=== PATIENT | female | born 1995 | race Caucasian/White ===

== ENCOUNTER 2021-04-11 13:39 | Inpatient (IN) ==
[~2021-04-11 13:39] MED LIST: *HR* Labetalol 20 MG/4 ML SYRINGE IVP ONE; *HR* Labetalol 20 MG/4 ML SYRINGE IVP PRN; Calcium Gluconate 1,000 MG/10 ML VIAL IVP PRN; CeFAZolin 2,000 MG/120 ML BAG IVPB ONE; Famotidine 20 MG/2 ML VIAL IVP ONE; MAGNESIUM SULFATE 6 GM/150 ML IVPB ONE; Magnesium Sulf 20 gm/SW 500mL 20 GM/500 ML IV.SOLN IVC SCH; Metoclopramide 10 MG/2 ML VIAL IVP ONE; Ringers Solution, Lactated 1,000 ML ONE
[2021-04-11 13:44] LABS: Basophils % 0.2 %; Eosinophils % 0.3 %; Hematocrit 39.8 % (35.3-44.9); Hemoglobin 13.4 g/dL (11.5-15.4); Immature Granulocytes % 0.2 % (0-4); Lymphocytes # 1.8 K/mcL (0.6-4.6); Lymphocytes % 19.5 %; Mean Corpuscular HGB Conc 33.7 g/dL (31.6-35.5); Mean Corpuscular Hemoglobin 30.6 pg (28.0-33.3); Mean Corpuscular Volume 90.9 fL (83.0-100.0); Mean Platelet Volume 12.2 fL (9.4-12.4); Monocytes # 0.6 K/mcL (0.0-1.3); Monocytes % 6.6 %; Neutrophils # 6.6 K/mcL (1.6-8.9); Platelet Count 262 K/mcL (140-400); Red Blood Count 4.38 M/mcL (3.82-4.97); Red Cell Distribution Width 13.2 % (11.5-14.5); Segmented Neutrophils % 73.2 %
[2021-04-11] MEDS ORDERED: Betamethasone Acet/SodPhos 30 MG/5 ML VIAL IM SCH (13:45)
[2021-04-11 14:03] LABS: Alanine Aminotransferase 4 Units/L (7-52); Aspartate Amino Transferase 13 Units/L (13-39); BUN/Creatinine Ratio 17 (6-26); Blood Urea Nitrogen 9 mg/dL (6-20); Lactate Dehydrogenase 204 Units/L (140-271); Uric Acid 7.2 mg/dL (2.3-7.6); eGFR For African Americans > 60 (> 60); eGFR For Non-African Americans > 60 (> 60)
[2021-04-11 14:13] LABS: Creatinine,Urine 93 mg/dL; Protein/Creatinine Ratio,Urine 8.98 mg/mg (0.00-0.20)
[2021-04-11] MEDS ORDERED: Penicillin G Potassium 5,000,000 UNIT in 0.9 % Sodium Chloride Mini Bag 100 ML IVPB ONE (14:20)
[2021-04-11] MEDS ORDERED: Ringers Solution, Lactated 1,000 ML ONE ×2 (14:32→14:53)
[2021-04-11] MEDS ORDERED: *HR* FentaNYL (PF) 100 MCG/2 ML VIAL ONE (14:40)
[2021-04-11] MEDS ORDERED: Azithromycin 500 MG in 0.9 % Sodium Chloride 250 ML IVPB PRN (14:40)
[2021-04-11] MEDS ORDERED: *HR* Morphine Sulfate/PF 10 MG/10 ML AMPUL ONE (14:40)
[2021-04-11] MEDS ORDERED: EPHEDrine 50 MG/ML VIAL ONE (14:44)
[2021-04-11] MEDS ORDERED: Acetaminophen IV 1,000 MG/100 ML BAG IVPB ONE (14:46)
[2021-04-11 14:56] LABS: Influenza A PCR Negative (Negative); Influenza B PCR Negative (Negative); Resp. Syncytial Virus PCR Negative (Negative); SARS-CoV-2 by PCR (In House) Negative (Negative)
[2021-04-11] MEDS ORDERED: Oxytocin 20 units/ LR 1000 mL 40 UNIT/2,000 ML BAG IVC ONE (15:28)
[2021-04-11 15:32] LABS: Amphetamine Screen,Urine Negative ng/mL (Cutoff=1000); Barbiturate Screen,Urine Negative ng/mL (Cutoff=200); Benzodiazepines Screen,Urine Negative ng/mL (Cutoff=200); Cannabinoid Screen,Urine Negative ng/mL (Cutoff = 50); Cocaine Screen,Urine Negative ng/mL (Cutoff= 300); Opiate Screen,Urine Negative ng/mL (Cutoff=300); Phencyclidine Screen,Urine Negative ng/mL (Cutoff=25)
[2021-04-11] MEDS ORDERED: *HR* Nalbuphine 10 MG/ML AMPUL ONE (16:20)
[2021-04-11] MEDS ORDERED: *HR* Phenylephrine 10 MG/ML VIAL ONE (16:50)
[2021-04-11] MEDS ORDERED: Ondansetron 4 MG/2 ML VIAL ONE (16:53)
[2021-04-11] MEDS ORDERED: Ketorolac 30 MG/ML VIAL ONE (16:54)
[2021-04-11] MEDS ORDERED: Ondansetron 4 MG/2 ML VIAL IVP PRN ×2 (18:55→21:39)
[2021-04-11] MEDS ORDERED: *HR* Enoxaparin 60 MG/0.6 ML SYRINGE SQ SCH (21:39)
[2021-04-11] MEDS ORDERED: Metoclopramide 10 MG/2 ML VIAL IVP PRN (21:39)
[2021-04-11] MEDS ORDERED: Calcium Gluconate 1,000 MG/10 ML VIAL IVP PRN (21:39)
[2021-04-11] MEDS ORDERED: Oxytocin 20 units/ LR 1000 mL 20 UNIT/1,000 ML BAG IVC SCH (21:39)
[2021-04-12] MEDS: Ibuprofen 600 MG TABLET PO SCH ×4 (01:52→20:32)
[2021-04-12] MEDS: Acetaminophen 325 MG TABLET PO SCH ×4 (01:53→20:33)
[2021-04-12] MEDS: Magnesium Sulf 20 gm/SW 500mL 20 GM/500 ML IV.SOLN IVC SCH ×2 (01:55→12:00)
[2021-04-12 05:35] LABS: Basophils % 0.1 %; Hematocrit 35.9 % (35.3-44.9); Immature Granulocytes % 0.5 % (0-4); Lymphocytes # 1.1 K/mcL (0.6-4.6); Lymphocytes % 6.5 %; Mean Corpuscular HGB Conc 33.4 g/dL (31.6-35.5); Mean Corpuscular Hemoglobin 30.7 pg (28.0-33.3); Mean Corpuscular Volume 91.8 fL (83.0-100.0); Mean Platelet Volume 12.2 fL (9.4-12.4); Monocytes # 0.5 K/mcL (0.0-1.3); Monocytes % 3.1 %; Neutrophils # 14.8 K/mcL (1.6-8.9); Platelet Count 267 K/mcL (140-400); Red Blood Count 3.91 M/mcL (3.82-4.97); Red Cell Distribution Width 13.5 % (11.5-14.5); Segmented Neutrophils % 89.8 %
[2021-04-12 05:41] LABS: White Blood Count 16.5 K/mcL (4.3-11.1)
[2021-04-12 05:50] LABS: Alanine Aminotransferase 5 Units/L (7-52); Aspartate Amino Transferase 13 Units/L (13-39); BUN/Creatinine Ratio 17 (6-26); Blood Urea Nitrogen 11 mg/dL (6-20); Lactate Dehydrogenase 223 Units/L (140-271); Uric Acid 8.2 mg/dL (2.3-7.6); eGFR For African Americans > 60 (> 60); eGFR For Non-African Americans > 60 (> 60)
[2021-04-12] MEDS: Prenatal Vit/FA 1 EACH TABLET PO SCH (08:12)
[2021-04-12] MEDS: Simethicone 80 MG TAB.CHEW PO PRN ×2 (08:12→20:33)
[2021-04-12] MEDS: *HR* Enoxaparin 60 MG/0.6 ML SYRINGE SQ SCH ×2 (08:13→20:34)
[2021-04-12] MEDS: *HR* OxyCODONE Immed Rel 5 MG TABLET PO PRN (13:08)
[2021-04-12 14:05] LABS: Magnesium 5.7 mg/dL (1.6-2.6)
[2021-04-13] MEDS: *HR* OxyCODONE Immed Rel 5 MG TABLET PO PRN (04:25)
[2021-04-13] MEDS: Acetaminophen 325 MG TABLET PO SCH (04:25)
[2021-04-13] MEDS: Ibuprofen 600 MG TABLET PO SCH (04:25)
[2021-04-13 04:49] VITALS: O2SAT 97
[2021-04-13 06:35] LABS: Basophils % 0.1 %; Hematocrit 33.6 % (35.3-44.9); Hemoglobin 10.7 g/dL (11.5-15.4); Immature Granulocytes % 0.5 % (0-4); Lymphocytes # 1.9 K/mcL (0.6-4.6); Lymphocytes % 17.5 %; Mean Corpuscular HGB Conc 31.8 g/dL (31.6-35.5); Mean Corpuscular Hemoglobin 30.3 pg (28.0-33.3); Mean Corpuscular Volume 95.2 fL (83.0-100.0); Mean Platelet Volume 11.8 fL (9.4-12.4); Monocytes # 0.5 K/mcL (0.0-1.3); Monocytes % 4.4 %; Neutrophils # 8.5 K/mcL (1.6-8.9); Platelet Count 236 K/mcL (140-400); Red Blood Count 3.53 M/mcL (3.82-4.97); Red Cell Distribution Width 14.3 % (11.5-14.5); Segmented Neutrophils % 77.5 %
[2021-04-13 06:53] LABS: Alanine Aminotransferase 5 Units/L (7-52); Aspartate Amino Transferase 12 Units/L (13-39); BUN/Creatinine Ratio 21 (6-26); Blood Urea Nitrogen 13 mg/dL (6-20); Lactate Dehydrogenase 225 Units/L (140-271); Uric Acid 8.4 mg/dL (2.3-7.6); eGFR For African Americans > 60 (> 60); eGFR For Non-African Americans > 60 (> 60)
[2021-04-13 07:52] VITALS: BP 140/80; PULSE 82; TEMP 98.3
[2021-04-13] MEDS: Prenatal Vit/FA 1 EACH TABLET PO SCH (08:04)
[2021-04-13] MEDS: *HR* Enoxaparin 60 MG/0.6 ML SYRINGE SQ SCH (08:04)
== END 2021-04-13 11:50 | disposition home or self-care (01) | DRG 788 ==
LOC: 1NENULAB → 1NENUOBS 21:40
PROVIDERS: ADMIT Registered Nurse; ATTEND Registered Nurse